=== PATIENT | male | born 1965 | race African-American/Black ===

== ENCOUNTER 2022-09-23 08:45 | Outpatient (CLI) | payer OTHER, SELFPAY ==
[2022-09-23 11:24] LABS: Albumin* 4.4 g/dL (3.3-5.0); Chloride* 107 mmol/L (96-114)
[2022-09-23 11:25] LABS: Potassium* 4.4 mmol/L (3.6-5.1); Sodium* 141 mmol/L (135-149)
[2022-09-23 11:27] LABS: Alkaline Phosphatase* 42 U/L (40-150); Aspartate Amino Transferase* 19 U/L (12-35); Bilirubin Total* 0.7 mg/dL (0.1-1.5); Blood Urea Nitrogen* 16 mg/dL (7-30); Carbon Dioxide* 30 mmol/L (20-32); Cholesterol* 180 mg/dL (90-199); Creatinine* 0.9 mg/dL (0.5-1.5); Estimated Glomerular Filt Rate 99 ml/min; Total Protein* 7.3 g/dL (6.0-8.3); Triglycerides* 59 mg/dL (40-149)
[2022-09-23 11:28] LABS: Alanine Aminotransferase* 19 U/L (4-50); Calcium* 9.2 mg/dL (8.4-10.6); HDL Cholesterol* 62 mg/dL (>=40); LDL Cholesterol Calculated 106 mg/dL (<100)
[2022-09-23 11:48] LABS: Glucose* 103 mg/dL (60-115)
== END 2022-09-23 08:46 | disposition home or self-care (01) ==
PROVIDERS: PCP Internal Medicine; Visit Provider Internal Medicine
DX: Z00.00 Encounter for general adult medical examination without abnormal findings (principal); Z13.6 Encounter for screening for cardiovascular disorders; Z12.5 Encounter for screening for malignant neoplasm of prostate
CPT/HCPCS: 80053; 80061; 84153

== ENCOUNTER 2023-09-02 07:34 | Emergency (ER) | payer OTHER, SELFPAY ==
[2023-09-02 07:38] VITALS: BP 128/79; PULSE 105; RESP 18; TEMP 36.4; O2SAT 96
--- NOTE | 2023-09-02 08:36 | ED_ITS ---
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 He had an injury in their area in the past and it just continues to bother him. He was showering today scrubbing his leg and it started bleeding and would not stop. Looks like a darkish blood draining out of a small area in his left anterior lópez. He is otherwise quite healthy takes ibuprofen daily for his work. He does not take other blood thinners. He is otherwise quite healthy. Has had some prostate biopsies really rib recently that were negative. Related Data Home Medications Medication Instructions Recorded Confirmed acetaminophen 500 mg tablet 500 mg PO PRN 09/23/22 09/23/22 tamsulosin 0.4 mg capsule 0.4 mg PO BID 09/23/22 Previous Rx's Medication Instructions Recorded albuterol sulfate 90 mcg/actuation 2 puff inhalation .Q4hprn Asthma 09/23/22 aerosol inhaler #8.5 grams ibuprofen 400 mg tablet 400 mg PO Q12H PRN Osteoarthritis 09/23/22 #360 tabs tamsulosin 0.4 mg capsule (Flomax) 0.4 mg PO BID BPH #180 caps 09/23/22 Allergies Allergy/AdvReac Type Severity Reaction Status Date / Time No Known Drug Allergies Allergy Verified 09/23/22 08:16 Review of Systems Status of ROS: Reports: 6 or more systems reviewed and unremarkable except as noted in History and below PFSH PFS Social History Smoking Status: Never smoker Little interest or pleasure in doing things: not at all Feeling down, depressed, or hopeless: not at all Exam Narrative: Exam Narrative: Objective: Vital signs are within normal limits He has got a small pinpoint area that is leading his left anterior lópez over his tibia. There is appears to be a little bit of a superficial vessel in that area. After putting pressure on the area for period of time it continued to ooze and bleed. There is no arterial bleeding. After informed consent Patient agreed to have a couple of sutures placed in this area. Will do that to close the off the bleeding . Procedure: After sterile scrub 1 sent xylocaine with epinephrine used for anesthesia for 0 4 3-0 simple opted Ethilon sutures were placed in crisscross fashion to close the area and there appeared to be good hemostasis, the patient tolerated this well. I observed later about 5-10 minutes and he still had no bleeding. Thus we covered with a Telfa Kerlix and Coban. He should keep this dressing on for the next 48 hours and then take this off, will have follow-up with her general surgery department to see if there is any vascularity that needs to be cauterized or removed, and he can have sutures removed at the visit in 7 days. Const: Vital Signs, click to edit/add: Vital Signs - 24 hr 09/02/23 07:38 Temperature 97.6 F Pulse Rate [Pulse Oximeter] 105 H Respiratory Rate 18 Blood Pressure [Ri ght Upper Arm] 128/79 Pulse Oximetry 96 Oxygen Delivery Me thod Room Air Course Vital Signs Vital signs: Initial Vital Signs Temperature 97.6 F 09/02/23 07:38 Temperature Source Temporal Artery Scan 09/02/23 07:38 Pulse Rate 105 H 09/02/23 07:38 Pulse Rhythm Regular 09/02/23 07:38 Respiratory Rate 18 09/02/23 07:38 Blood Pressure 128/79 09/02/23 07:38 Blood Pressure Mean 95 09/02/23 07:38 Blood Pressure Position Sitting 09/02/23 07:38 Pulse Oximetry 96 09/02/23 07:38 Oxygen Delivery Method Room Air 09/02/23 07:38 Vital Signs Temperature 97.6 F 09/02/23 07:38 Pulse Rate 105 H 09/02/23 07:38 Respiratory Rate 18 09/02/23 07:38 Blood Pressure 128/79 09/02/23 07:38 Pulse Oximetry 96 09/02/23 07:38 Oxygen Delivery Method Room Air 09/02/23 07:38 Temperature 97.6 F 09/02/23 07:38 Pulse Rate 105 H 09/02/23 07:38 Respiratory Rate 18 09/02/23 07:38 Blood Pressure 128/79 09/02/23 07:38 Pulse Oximetry 96 09/02/23 07:38 Oxygen Delivery Method Room Air 09/02/23 07:38 Medical Decision Making MDM Narrative Medical decision making narrative: Please see exam narrative. At this point the patient will follow-up with surgery, suture removed in about a week, he is up-to-date on tetanus, avoid anti platelet medicine such as Advil Aleve or aspirin. Watch for redness infection, would recommend off work for the next couple of days Discharge Plan Discharge Clinical Impression: Bleeding from varicose vein Patient Disposition: Home w/ Parent or Adult Condition: Improved Additional Instructions: Off work for 2 days, light activity, avoid aspirin Advil or Aleve. Recommend follow-up with her general surgery team to discuss any additional treatment needed for the area that continues to bleed. Watch for redness infection. Appointment made for Thursday at [address] Salamanca who is the surgeron at the [facility] to the hospital. The sutures need to be removed in a week with primary care provider. Activity Level: Light activity Discharge Diet: Regular Prescriptions: No Action tamsulosin 0.4 mg capsule 0.4 mg PO BID acetaminophen 500 mg tablet 500 mg PO PRN Rx Instructions: NO MORE THAN 4000 MG/DAY albuterol sulfate 90 mcg/actuation HFA aerosol inhaler 2 puff inhalation .Q4hprn Qty: 8.5 3RF Rx Instructions: Refill one time, patient needs to see MD for additional refills. ibuprofen 400 mg tablet 400 mg PO Q12H PRN (Reason: Osteoarthritis) Qty: 360 3RF tamsulosin [Flomax] 0.4 mg capsule 0.4 mg PO BID Qty: 180 3RF Follow Up/Referrals: Clarence Vazquez MD [Primary Care Provider] - Stand Alone Forms: Communication Specialist Limited Info Instructions
== END 2023-09-02 09:13 | disposition home or self-care (01) ==
LOC: ED 08:43
PROVIDERS: Emergency Provider Family Medicine; PCP Internal Medicine
DX: I83.892 Varicose veins of left lower extremity with other complications (principal)
CPT/HCPCS: 12001; 99283; 99284

== ENCOUNTER 2023-10-07 08:55 | Outpatient (CLI) | payer OTHER, SELFPAY ==
--- OUTSIDE RECORDS SUMMARY | 2023-10-07 13:57 | XMS_ITS | Data Portability ---
Author Name Unknown Address [address] [place] [address] Phone [phone] Organization [facility] Address [address] [place] [address] Care Team Providers Care Agronomy Manager Name Role Phone RENATA DONAHUE Primary Care Provider Assessment Encounter Date Assessment Date Assessment LastModified by Organization Details LastModified Time 01/06/2022 01/06/2022 Of note a total of 15 minutes was spent: preparing to see the patient by reviewing records, images, and laboratory data; obtaining/revie wing separately obtained history; performing physical examination, counseling and educating patient/family/ caregiver; ordering appropriate medications, labs, imaging or procedures; documenting the clinical encounter; and coordination of care. [email or web address] Not available 01/08/2022 08:59:44 Plan of Treatment Reminders Order Date Submit Date Provider Last Modified By Organization Details Last Modified Time Details Appointments None recorded. Lab None recorded. Referral None recorded. Procedures None recorded. Surgeries None recorded. Imaging None recorded. Medication Orders ceftriaxone 1 gram solution for injection 2021 022 [email or web address] Not available 11:05:23 Patient TargetsNo targets recorded. Patient InstructionsNo instructions recorded. Reason for Referral None Reported. Results Created Date Observation Date Name Description Value Unit Range Abnormal Flag LastModifiedBy Organization Detail LastModifiedTime 10/24/19 22 10/23/2021 MRI, prost ate, w/wo contr ast No observ ation record ed. Not Available 10/29/2021 10:11:46 12/28/19 22 12/26/2021 US, prost ate No observ ation record ed. BARCODE Not Available 12/27/2021 09:15:02 Result Notes None recorded. Procedures Surgical History Date Name Laterality Status Provider Name and Address Organization Details Recorded Time Prostate Biopsy Procedure completed Ramy Machuca MD [address], [place], [address], [place] [facility] 12/26/2021 13:56:59 colonoscopy completed Destiny riggs [facility] 12/25/2021 09:39:31 Imaging Results Imaging Date Name Status LastModified by Organiz ation Details LastModified Time 10/23/2021 MRI, prostate, w/wo contrast completed Information not available 10/29/2021 10:11:46 12/26/2021 US, prostate completed BARCODE Information not available 12/27/2021 09:15:02 Procedure Notes None recorded. Medical Equipment None Reported. Allergies No known drug allergies Medications Name Sig Start Date Stop Date Status Note LastModified by Organization Details LastModified Time ketoconazol e 2 % shampoo APPLY TOPICALLY ONCE active Not Available Not Available No t Available acetaminoph en 500 mg tablet TAKE 1 TO 2 TABLETS BY MOUTH EVERY 6 HOURS NEEDED. NO MORE THAN 4000 MG DAILY active Not Available Not Available No t Available ceftriaxone 1 gram solution for injection Take 1 g by injection route. 2021 active Not Available Not Available Not Avai lable prednisolon e acetate 1 % eye drops,suspe nsion SHAKE LIQUID AND INSTILL 1 TO 2 DROPS IN RIGHT EYE EVERY 2 HOURS WHILE AWAKE 12/26 completed Not Available Not Available Not Available tamsulosin 0.4 mg capsule TAKE 1 CAPSULE BY MOUTH TWICE DAILY WITH MEALS active Not Available Not Available No t Available Ventolin HFA 90 mcg/actuati on aerosol inhaler INHALE 2 PUFFS BY MOUTH 1 TIME EVERY 4 HOURS NEEDED active Not Available Not Available No t Available Vitals Date Recorded Body height Body mass index (BMI) Body weight Provider Name and Address Organization Details Last Updated DateTime 12/26/2021 172.72 cm 26.6 kg/m2 80811.66 g Destiny riggs [facility] 12/26/2021 10:54:29 Date Recorded Body height Body mass index (BMI) Body weight Provider Name and Address Organization Details Last Updated DateTime 01/06/2022 172.72 cm 26.6 kg/m2 51615.66 g Destinyjalen Buenomoody riggs [facility] 01/06/2022 10:14:49 Social History Question Answer Notes LastModified by Organizat ion Details LastModified Time Tobacco Smoking Status Never Smoker Destiny Phelps oneil [facility] 12/25/2021 09:38:29 What Is Your Level Of Alcohol Consumption? Occasional Information not available 12/25/2021 What Is Your Level Of Caffeine Consumption? Occasional Information not available 12/26/2021 Race Information not available 12/25/2021 Ethnicity Not /Latin o Information not available 12/25/2021 Preferred Language Turkmen Information not available 12/25/2021 Could You Be ? No Information not available 12/25/2021 What Was The Date Of Your Most Recent Tobacco Screening? 01/06/2022 Information not available 01/06/2022 What Is Your Relationship Status? Information not available 12/25/2021 Do You Use Any Illicit Or Recreational Drugs? No Information not available 12/25/2021 Has Tobacco Cessation Counseling Been Provided? No Information not available 12/25/2021 Do You Or Have You Ever Used Any Other Forms Of Tobacco Or Nicotine? No Information not available 12/25/2021 Sex: Male Functional Status None recorded. Mental Status None recorded. Family History Relationship Description Onset Age of this Age Resolved Age Notes Maternal Aunt Family history of br east cancer Father Family history of ca rdiac disorder Brother Family history of diabetes mellitus Medical History Condition Response High Blood Pressure N Kidney Stones N Depression N Lung Disease N GERD/Acid Reflux N Diabetes N Sexually Transmitted Infection N Bleeding Disorder N Cancer N High Cholesterol N Heart Disease N Past Encounters Encounter ID Performer Location Encounter Start Date Encounter Closed Date Diagnosis/Indication [id number] Ramy Machuca MD [facility] [address] [place] [address] 12/26/2021 10:37:32 12/30/2021 10:15:37 Prostate specific antigen above reference range [id number] Ramy Machuca MD [facility] [address] [place] [address] 01/06/2022 10:14:00 01/11/2022 03:54:51 Prostate specific antigen above reference range Health Concerns Section Related Observation LastModified by Organization Detai ls LastModified Time None Recorded Concern Status LastModified by Organization Details LastModified Time None Recorded Advance Directives Directive None Recorded Payers Encounter Date Sequence Insurance Name Policy Number Policy Marino Covered Member ID Marino Member ID Guarantor Name 01/06/20[address] [facility] - OPEN ACCESS CHOICE (HMO) [id number] Nghia Colbert [id number] Nghia Colbert 12/26/[address] - OPEN ACCESS CHOICE (HMO) [id number] Nghia Colbert [id number] Nghia Robles Notes Date Note Type Note Provider Name and Address Organization Details Recorded Time 12/26/2021 text/html HPI Notes: 56 yo M who follows with me in . Here for TRUS Prostate Bx. Ramy Machuca MD [address], [place], [address], [facility] 12/26/2021 13:57:22 01/06/2022 text/html HPI Notes: This visit was conducted by telephone due to the COVID-19 crisis. Prior to conducting our telephone visit, the patient was apprised of the risks, benefits and alternatives to telephone visits including but not limited to poor audio quality, interrupted visits due to technological limitations, delays in medical evaluation and treatment due to deficiencies or failures of equipment, failure of security protocols resulting in a breach of privacy of personal medical information and a lack of access to complete medical records resulting in not fully informed decisions. Also, because of the COVID-19 pandemic, it was not possible for the patient to sign the privacy regulations, HIPAA release and assignment of benefits forms. The patient was given the opportunity to ask questions about these policies and gave verbal acknowledgement and approval of these policies as well as to hold this meeting by telephone. Lastly, the patient agreed to allowing their medication history to be pulled from a national pharmacy database to facilitate and coordinate their care. 01/06/2022: Pathology discussion. TRUS prostate biopsy negative for cancer. Ramy Machuca MD [address], [place], [address], [facility] 01/08/2022 08:59:47
--- OUTSIDE RECORDS SUMMARY | 2023-10-07 13:58 | XMS_ITS | Clinical Summary ---
Author Name Unknown Organization [employer] [facility] Address [place], [place] [address] Care Team Providers Care Delinquent Notice Machine Operator Name Role Phone Clarence Vazquez MD Primary Care Provider Allergies No known active allergies Medications Medication Sig Dispensed Refills Start Date End Date Status acetaminophen (TYLENOL EXTRA STRGTH) 500 mg tablet TAKE 1 TO 2 TABLETS BY MOUTH EVERY 6 HOURS NEEDED. NO MORE THAN 4000 MG DAILY 0 07/31/2021 Active Ventolin HFA 90 mcg/actuation inhaler INHALE 2 PUFFS BY MOUTH 1 TIME EVERY 4 HOURS NEEDED 0 07/31/2021 Active ketoconazole 2% shampoo (NIZORAL) 2 % shampoo APPLY TOPICALLY ONCE 0 07/31/2021 Active tamsulosin (Flomax) 0.4 mg capsuleIndications: Elevated PSA, between 10 and less than 20 ng/ml Take one tab PO twice daily with meals. 180 Capsule 3 09/25/2021 Active Immunizations Name Administration Dates Next Due Hepatitis B (Adult) 06/04/2012,01/15/2010 Influenza A (H1N1), Inactiva eleanor (Age >=3 Years) 07/02/2009 Influenza, IIV3 (Age 6-35 mos) 06/04/2012 Influenza, IIV3 (Age >=3 years) 06/01/2014,06/06,05/27/2011 Influenza, IIV4 06/12/2016 Influenza, IIV4 (=>6mos) MDV 06/01/2018,06/10/20 17 Influenza,CCIIV4 PRESERV FREE 06/20/2019 Meningococcal Vaccine (Menveo) 09/22/2017 Td (Age >=7 Years) 06/28/2003 Tdap 06/04/2012 Yellow Fever 03/19/1994 Zoster (Shingrix-RZV, recombinant) 06/20/2019, Social History Tobacco Use Types Packs/Day Years Used Date Smoking Tobacco: Never Smokeless Tobacco: Never Tobacco Cessation:Counseling Given: Yes Alcohol Use Standard Drinks/Week Comments Yes 0 (1 standard drink = 0.6 oz pur e alcohol) Sex and Gender Information Value Date Recorded Sex Assigned at Not on file Gender Identity Not on file Sexual Orientation Not on file Obstetrics History Last Filed Vital Signs Vital Sign Reading Time Taken Comments Blood Pressure 134/71 09/25/2021 10:42 AM PHOTO MACHINE OPERATOR Pulse 75 09/25/2021 10:42 AM PHOTO MACHINE OPERATOR Temperature - - Respiratory Rate 16 09/25/2021 10:4 2 AM PHOTO MACHINE OPERATOR Oxygen Saturation 100% 09/25/2021 10: 42 AM PHOTO MACHINE OPERATOR Inhaled Oxygen Concentration - - Weight 81.9 kg (180 lb 8 oz) 09/25/2021 10:42 AM PHOTO MACHINE OPERATOR PT weighed with shoes on. Height - - Body Mass Index - - Plan of Treatment Health Maintenance Due Date Last Done Comments Depression screening for age 12+ 1975 HIV for age 15-65 11/25/1978 BMI (ht and wt on same day) for age 18+ 11/25/1981 Hepatitis C screening for age 18-79 11/25/1981 Colonoscopy through age 75 11/25/2008 Lipids for age 45-75 11/25/2008 Tetanus booster 06/04/2022 06/04/2012, 06/28/2003 COVID-19 vaccine series (2022- season) 2023 06/28/2021, 10/09/2020, 09/11/2020 Influenza for age 50-64 05/01/2023 06/20/20 19, 06/01/2018, 06/10/2017, Additional history exists Tdap Completed 06/04/2012 Zoster (shingles) series for age 50+ Completed 06/20/2019, 2018 Pneumococcal series for age 6-64 Aged Out No longer eligible based on patient's age to complete this topic Care Teams Delinquent Notice Machine Operator Relationship Specialty Start Date End Date Clarence Vazquez MD [address] [place] [address] PCP - General Internal Medicine 08/10/19
== END 2023-10-07 08:56 | disposition home or self-care (01) ==
LOC: NFLDREF 13:55
PROVIDERS: PCP Internal Medicine; Referring Provider Internal Medicine; Visit Provider Internal Medicine
DX: Z00.00 Encounter for general adult medical examination without abnormal findings (principal); E78.5 Hyperlipidemia, unspecified; N40.0 Benign prostatic hyperplasia without lower urinary tract symptoms; M19.90 Unspecified osteoarthritis, unspecified site; J45.909 Unspecified asthma, uncomplicated; Z13.9 Encounter for screening, unspecified
CPT/HCPCS: 80053; 80061; G0103

== ENCOUNTER 2024-09-27 07:54 | Outpatient (CLI) | payer BC, SELFPAY ==
--- NOTE | 2024-09-27 08:41 | W.ANESCHARGE ---
Anesthesia Charges Start Date/Time Anesthesia Start Date: 09/27/24 Anesthesia Start Time: 08:19 Stop Date/Time Anesthesia Stop Date: 09/27/24 Anesthesia Stop Time: 08:40 Coding CPT Codes CPT Codes: ANES LWR INTST SCR COLSC - 47779 ([id number]) P2 - PATIENT W/MILD SYST DISEASE, QK - CUSTOMER EQUIPMENT ENGINEER 2-4 CNCRNT ANES PROC, QX - INNER TUBE TUBER MACHINE OPERATOR SVC W/ MD MED DIRECTION
--- NOTE | 2024-09-27 09:45 | W.ANESCHARGE ---
Anesthesia Charges Start Date/Time Anesthesia Start Date: 09/27/24 Anesthesia Start Time: 08:19 Stop Date/Time Anesthesia Stop Date: 09/27/24 Anesthesia Stop Time: 08:40 Coding CPT Codes CPT Codes: ANES LWR INTST SCR COLSC - [id number] ([id number]) P2 - PATIENT W/MILD SYST DISEASE, QK - BAGGER MEAT 2-4 CNCRNT ANES PROC, QX - HARBOR MASTER SVC W/ MD MED DIRECTION
== END 2024-09-27 07:55 | disposition home or self-care (01) ==
LOC: OP CLINIC 07:55
PROVIDERS: PCP Internal Medicine; Visit Provider Internal Medicine
DX: Z12.11 Encounter for screening for malignant neoplasm of colon (principal)
CPT/HCPCS: 00812; 45378; J2704

== ENCOUNTER 2024-10-18 08:44 | Outpatient (CLI) | payer BC, SELFPAY | END 2024-10-18 08:45 | disposition home or self-care (01) | PROVIDERS: PCP Internal Medicine; Visit Provider Internal Medicine | DX: Z13.6 Encounter for screening for cardiovascular disorders (principal); Z12.5 Encounter for screening for malignant neoplasm of prostate; Z13.9 Encounter for screening, unspecified | CPT/HCPCS: 80053; 80061; G0103 ==